=== PATIENT | male | born 1980 | race Caucasian/White ===

== ENCOUNTER 2021-04-17 00:22 | Emergency (ER) | payer SELFPAY ==
[2021-04-17 00:22] VITALS: BP 155/93; PULSE 97; RESP 20; TEMP 36.7; O2SAT 98
[2021-04-17] MEDS: TETANUS,DIPHTHERIA,AC PERTUSSIS ADULT 0.5 ML (ADACEL) IM (00:40)
--- NOTE | 2021-04-17 00:45 | ED_ITS ---
HPI - Wound/Laceration General Chief Complaint: Wound/Laceration Stated Complaint: Finger Laceration Source: patient Mode of arrival: ambulatory Limitations: no limitations History of Present Illness HPI narrative: this is a 41-year-old gentleman that presents with a well- approximated 2cm laceration to the palmar surface of the distal left index finger that occurred earlier this evening while he was cleaning a pocket knife, currently there is minimal blood loss no numbness or tingling in the finger has good range of motion. Onset (ago): hour(s) Extremity Location: Left: hand ( Laceration left index finger) Related Data Home Medications Medication Instructions Recorded Confirmed No Home Medications 04/17/21 04/17/21 Allergies Allergy/AdvReac Type Severity Reaction Status Date / Time No Known Allergies Allergy Verified 04/17/21 00:39 Review of Systems Review of Systems: All systems reviewed & are unremarkable except as noted in HPI and below PMFSH Past Medical History Medical History Patient denies medical problems Exam Const: General: no acute distress Orientation/consciousness: patient oriented x3 HENMT: Head: normal to inspection Eyes: Conjunctivae: conjunctivae normal Pupils: Equal, round and reactive pupils present EOM: EOMs intact bilaterally Direct Ophthalmoscopy: no photophobia Neck: Neck: normal visual inspection, no lymphadenopathy and no meningeal signs Chest: Chest palpation & inspection: normal inspection of the chest Resp: Effort & Inspection: normal respiratory effort Auscultation: clear to auscultation bilaterally Cardio: Rate: regular rate Rhythm: regular rhythm GI: GI Palp: Yes Soft to palpation Skin: Other: 2cm non gaping laceration palmar surface of his left index finger Neuro: General: patient oriented x3, moves all extremities and no meningeal signs Extrem: General: normal to inspection and no pedal edema Psych: Mental Status: mental status grossly normal Affect: normal affect Course Course Emergency Course: Dermabond used to close laceration on his finger patient was updated with his tetanus vaccine, patient tolerated procedure well. Procedures Laceration Laceration 1: Date: 04/17/21 Site: hand ( Left index finger) Side (If applicable): left Size (cm): 2 Description: linear Pre-repair: wound explored and irrigated ====== Skin Level ====== Skin layer closed with: dermabond ====== Subcutaneous Layer ====== ====== Muscle Layer ====== ====== Tendon Layer ====== Critical Care Time Critical Care Time Critical Care Time: No Discharge Plan Discharge Clinical Impression: Laceration Patient Disposition: Home, Self-Care Condition: Stable Instructions: Antibiotic Form, Laceration (ED), Skin Adhesive Care (ED) Additional Instructions: follow-up primary care physician if symptoms persist or worsen. Prescriptions: No Action No Home Medications RF: 0 Follow-up/Referrals: Dino Shipley MD [Primary Care Provider] - Time of Disposition: 00:48
[2021-04-17 00:49] VITALS: BP 155/93; PULSE 97; RESP 20; TEMP 36.2; O2SAT 97
== END 2021-04-17 00:51 | disposition home or self-care (01) ==
PROVIDERS: Emergency Provider Emergency Medicine; PCP Family Medicine
DX: S61.211A Laceration without foreign body of left index finger without damage to nail, initial encounter (principal); W26.0XXA Contact with knife, initial encounter
CPT/HCPCS: 12001; 90471; 90715; 99282; 99283